=== PATIENT | female | born 1945 | race American Indian/Alaskan Native ===

== ENCOUNTER 2017-07-03 14:02 | Outpatient (CLI) | payer MEDICARE ==
--- NOTE | 2017-07-03 16:04 | XRay Report ---
XRAY RIGHT SHOULDER THREE VIEWS: 07/03/17 14:02:00 CLINICAL: Right shoulder pain. FINDINGS: Mild osteopenia. Normal glenohumeral alignment. Glenohumeral joint arthritis with irregularity of the glenoid and small inferior humeral and glenoid osteophytes. Normal acromioclavicular joint. A small subacromial osteophyte. No fracture. Normal soft tissues. IMPRESSION: Glenohumeral joint osteoarthritis. Narrowing of the subacromial space by a small subacromial osteophyte.
== END 2017-07-03 14:03 | disposition home or self-care (01) ==
LOC: SPVIMAG 14:02
PROVIDERS: ATTEND Orthopaedic Surgery Sports Medicine
DX: M19.011 Primary osteoarthritis, right shoulder (principal); M85.811 Other specified disorders of bone density and structure, right shoulder